=== PATIENT | female | born 1965 | race Two or more races ===

== ENCOUNTER 2023-03-23 17:06 | Emergency (ER) | payer OTHER ==
[~2023-03-23] VITALS: Ht 165.1 cm; Wt 83.9 kg
[~2023-03-23 17:06] MED LIST: ANTICONCEPTIVOS
[2023-03-23] MEDS ORDERED: LEVOTHYROXINE25 MCG (17:14)
[2023-03-23] MEDS ORDERED: CARAFATE1 GM/10 ML PO (19:35)
[2023-03-23] MEDS ORDERED: ZOFRAN8 MG PO (19:35)
[2023-03-23] MEDS ORDERED: PEPCID AC20 MG PO (19:35)
== END 2023-03-23 19:41 | disposition home or self-care (01) ==
LOC: ER 17:06
DX: K29.00 Acute gastritis without bleeding (principal); R10.9 Unspecified abdominal pain